=== PATIENT | male | born 1945 ===

== ENCOUNTER 2017-03-08 12:58 | Emergency (ER) | payer BC ==
[2017-03-08 12:04] LABS: ASCORBIC ACID (UR NOT ORDER) NEG (NEG); BILIRUBIN, URINE NEGATIVE (NEG); ER URINALYSIS TAT 0 Hrs 12 Mins; KETONE, URINE NEGATIVE (NEG); LEUKOCYTE ESTERASE(NOT OR NEG (NEG); NITRITE (URINE) NEG (NEG); WBC (NOT ORDERED) (RFLEX) 2 (0-5)
[2017-03-08 12:16] LABS: BASOPHILS 0.2 %; BASOPHILS ABSOLUTE 0.02 10/3/uL (0.0-0.16); EOSINOPHILS 0.4 %; EOSINOPHILS ABSOLUTE 0.04 10/3/uL (0.0-0.53); IMMATURE GRANULOCYTES 0.2 %; IMMATURE GRANULOCYTES ABSOLUTE 0.02 10/3/uL (0.0-0.11); LYMPHOCYTES 17.1 %; LYMPHOCYTES ABSOLUTE 1.57 10/3/uL (0.67-4.30); MEAN PLATELET VOLUME 11.3 fL (9.2-13.0); MONOCYTES 7.6 %; NEUTROPHILS 74.5 %; NEUTROPHILS ABSOLUTE 6.81 10/3/uL (2.02-8.40); RBC DISTRIBUTION WIDTH 13.9 % (12.0-16.0); RED CELL COUNT 5.17 10/6/uL (4.7-6.1)
[2017-03-08 12:32] LABS: A/G RATIO 1.1 (0.7-1.9); ALBUMIN 3.9 G/DL (3.5-5.0); ALKALINE PHOSPHATASE 88 U/L (45-117); BUN (BLOOD UREA NITROGEN) 14 MG/DL (6-23); CHLORIDE, SERUM 106 MMOL/L (96-112); CO2 (CARBON DIOXIDE) 26 MMOL/L (24-34); CREATININE 1.03 MG/DL (0.70-1.30); GFR AFRICAN AMERICAN 84 ML/MIN (>=60); GFR NON AFRICAN AMERICAN 73 ML/MIN (>=60); GLOBULIN 3.5 G/DL (2.5-4.1); GLUCOSE, SERUM 92 MG/DL (60-99); SGOT(AST) 28 U/L (5-40); SGPT(ALT) 40 U/L (5-65); SODIUM, SERUM 140 MMOL/L (135-148); TOTAL PROTEIN 7.4 G/DL (6.0-8.5)
[2017-03-08 12:45] LABS: ER CBC TAT 0 Hrs 01 Mins; HEMATOCRIT 45.7 % (40.0-51.0); HEMOGLOBIN 15.8 g/dL (13.6-17.8); MANUAL DIFF NO %; MEAN CORPUS HGB CONC 34.6 g/dL (32.0-36.0); MEAN CORPUSCULAR HEMOGLOB 30.6 pg (26.0-34.0); MEAN CORPUSCULAR VOLUME 88.4 fL (80-100); PLATELET COUNT 188 10/3/uL (150-400); WHITE BLOOD CELLS 9.2 10/3/uL (4.5-10.5)
[2017-03-20] MEDS ORDERED: FLOMAX4 PO (17:20)
[2017-03-20] MEDS ORDERED: ALEVE220 MG PO (17:28)
[2017-03-24] MEDS ORDERED: DSS PO (11:00)
[2017-03-24] MEDS ORDERED: CIP5 PO (11:01)
[2017-03-24] MEDS ORDERED: NORCO1 TA1 PO (11:01)
== END 2017-03-08 13:38 | disposition home or self-care (01) ==
LOC: ER 12:58
PROVIDERS: Physician Assistant
PROC: 0T9B30Z Drainage of Bladder with Drainage Device, Percutaneous Approach (ICD-10-PCS; principal; 2017-03-08)
DX: N40.1 Benign prostatic hyperplasia with lower urinary tract symptoms (principal); R31.9 Hematuria, unspecified; R39.11 Hesitancy of micturition
CPT/HCPCS: 80053; 81001; 83690; 85025; 99284